=== PATIENT | female | born 1955 ===

== ENCOUNTER 2023-06-08 22:52 | Emergency (ER) | payer OTHER ==
[~2023-06-08] VITALS: Ht 162.6 cm; Wt 70.3 kg
[2023-06-08] MEDS ORDERED: KETOROLAC TROMETHAMINE 30 MG INJ ONE (23:12)
[2023-06-08] MEDS ORDERED: ONDANSETRON 4 MG/2 ML VIAL ONE (23:12)
[2023-06-08 23:16] LABS: BASOPHILS # (AUTO) 0.1 K/UL (0.0-0.2); BASOPHILS % (AUTO) 0.7 % (0.0-2.0); EOSINOPHILS # (AUTO) 0.1 K/uL (0.0-0.7); EOSINOPHILS % (AUTO) 1.4 % (0.0-7.0); HEMATOCRIT 38.5 % (31.2-41.9); LYMPHOCYTES # (AUTO) 1.9 K/uL (0.8-4.8); LYMPHOCYTES % (AUTO) 23.3 % (20.5-51.5); MEAN CORPUSCULAR HEMOGLOBIN 28.2 uug (24.7-32.8); MEAN CORPUSCULAR HGB CONC 34 g/dL (32.3-35.6); MEAN CORPUSCULAR VOLUME 83.6 fL (75.5-95.3); MONOCYTES # (AUTO) 0.6 K/uL (0.1-1.30); MONOCYTES % (AUTO) 6.7 % (0.0-11.0); NEUTROPHILS # (AUTO) 5.7 K/uL (1.8-8.9); NEUTROPHILS % (AUTO) 67.9 % (38.5-71.5); PLATELET COUNT (AUTO) 155 K/uL (179-408); RED CELL DISTRIBUTION WIDTH 13.9 % (12.3-17.7); WHITE BLOOD COUNT (AUTO) 8.3 K/uL (3.8-11.8)
[2023-06-08 23:17] LABS: DIFFERENTIAL COMMENT 1
[2023-06-08] MEDS: KETOROLAC TROMETHAMINE 30 MG INJ IVP ONE (23:17)
[2023-06-08] MEDS: IV NORMAL SALINE 500 ML BAG IV ONE (23:17)
[2023-06-08] MEDS: ONDANSETRON 4 MG/2 ML VIAL IV ONE (23:17)
[2023-06-08 23:26] LABS: *BILIRUBIN,URIN NEGATIVE (NEGATIVE); *CLARITY,URINE CLEAR (CLEAR); *COLOR,URINE YELLOW (YELLOW); *KETONES,URINE NEGATIVE (NEGATIVE); *PROTEIN,URINE NEGATIVE (NEGATIVE); *UROBILINOGEN,URINE 0.2 E.U./dl (NORMAL); LEUKOCYTE ESTERASE ,URINE NEGATIVE (NEGATIVE); NITRITE, URINE NEGATIVE (NEGATIVE); PH,URINE 8.5 (5.0-8.0); UGLUCOSE NEGATIVE (NEGATIVE)
[2023-06-08 23:30] LABS: ALBUMIN 3.9 g/dL (3.4-5.0); BILIRUBIN,DIRECT 0.1 mg/dL (0.0-0.2); BILIRUBIN,TOTAL 0.5 mg/dL (0.2-1.0); CREATININE 1.2 mg/dL (0.6-1.3); POTASSIUM 3.4 mmol/L (3.5-5.1); TOTAL PROTEIN, SERUM 7.5 g/dL (6.4-8.2)
[2023-06-08 23:35] LABS: CALCIUM 9.6 mg/dL (8.5-10.1)
[2023-06-09 00:33] LABS: *BLOOD, URINE NEGATIVE (NEGATIVE)
[2023-06-09] MEDS ORDERED: POTASSIUM CHLORIDE 20 MEQ TAB.PRT.SR ONE (01:13)
[2023-06-09] MEDS: POTASSIUM CHLORIDE 20 MEQ TAB.PRT.SR PO ONE (01:14)
[2023-06-09] MEDS ORDERED: HYDROCODONE/APAP 5-325MG TABLET ONE (01:56)
[2023-06-09] MEDS: HYDROCODONE/APAP 5-325MG TABLET PO ONE (02:00)
[2023-06-09] MEDS ORDERED: NAPR-1009 PO (03:33)
[2023-06-09] MEDS ORDERED: TAMS-3 PO (03:33)
[2023-06-09] MEDS ORDERED: HYDR-4209 PO (03:33)
[2023-06-09] MEDS: TAMSULOSIN HCL 0.4 MG CAP.SR.24H PO ONE (03:43)
[2023-06-09] MEDS ORDERED: TAMSULOSIN HCL 0.4 MG CAP.SR.24H ONE (03:43)
[2023-06-09 03:45] VITALS: BP 142/73; O2SAT 98
== END 2023-06-09 03:45 | disposition home or self-care (01) ==
LOC: ER 22:59
DX: N20.0 Calculus of kidney (principal); N13.4 Hydroureter; R03.0 Elevated blood-pressure reading, without diagnosis of hypertension; I48.91 Unspecified atrial fibrillation; Z90.49 Acquired absence of other specified parts of digestive tract; Z79.899 Other long term (current) drug therapy
CPT/HCPCS: 99285; 74176; 96374; 96375; 80076; 80048; 81003; 83690; 85025; 36415; J1885; J2405; A4606; A4663